=== PATIENT | male | born 1945 | race Caucasian/White ===

== ENCOUNTER 2021-05-01 22:49 | Emergency (ER) | payer MEDICARE, BC ==
[~2021-05-01] VITALS: Ht 172.7 cm; Wt 99.8 kg
[2021-05-01] MEDS ORDERED: IV NORMAL SALINE 1000 ML BAG IV ONE (23:15)
[2021-05-01] MEDS ORDERED: DICYCLOMINE HCL LIQ 10 MG/5 ML UDC PO ONE (23:15)
[2021-05-01] MEDS ORDERED: DIPHENOXYLATE HCL/ATROP SULF TABLET PO ONE (23:15)
[2021-05-01 23:32] LABS: HEMATOCRIT 40.9 % (36.7-47.1); MEAN CORPUSCULAR HEMOGLOBIN 32.8 uug (23.8-33.4); MEAN CORPUSCULAR VOLUME 94.8 fL (73.0-96.2); PLATELET COUNT (AUTO) 324 K/uL (152-348)
[2021-05-01 23:35] LABS: CARBON DIOXIDE 22 mmol/L (21-32); CHLORIDE 96 mmol/L (98-107); CREATININE 3.4 mg/dL (0.6-1.3); GLUCOSE 124 mg/dL (74-106); POTASSIUM 4.5 mmol/L (3.5-5.1); UREA NITROGEN, BLOOD 65 mg/dL (7-18)
[2021-05-01] MEDS ORDERED: DICYCLOMINE HCL LIQ 10 MG/5 ML UDC ONE (23:45)
[2021-05-01] MEDS ORDERED: DIPHENOXYLATE HCL/ATROP SULF TABLET ONE (23:47)
[2021-05-01 23:50] LABS: ALANINE AMINOTRANSFERASE 26 U/L (16-63); ALKALINE PHOSPHATASE 104 U/L (50-136); ASPARTATE AMINOTRANSFERASE 20 U/L (15-37); BILIRUBIN,DIRECT 0.2 mg/dL (0.0-0.2); BILIRUBIN,TOTAL 0.7 mg/dL (0.2-1.0); LIPASE 197 U/L (73-393)
[2021-05-02] MEDS ORDERED: IV NORMAL SALINE 1000 ML BAG IV ONE (00:45)
[2021-05-02 01:37] LABS: CARBON DIOXIDE 23 mmol/L (21-32); CHLORIDE 101 mmol/L (98-107); CREATININE 3.2 mg/dL (0.6-1.3); GLUCOSE 109 mg/dL (74-106); POTASSIUM 4.5 mmol/L (3.5-5.1); UREA NITROGEN, BLOOD 63 mg/dL (7-18)
[2021-05-02] MEDS ORDERED: DICY20TA11 PO (02:08)
[2021-05-02] MEDS ORDERED: DIPH1TAB28 PO (02:08)
[2021-05-02] MEDS ORDERED: ONDA4TAB5 PO (02:08)
[2021-05-02] MEDS ORDERED: DICYCLOMINE HCL LIQ 10 MG/5 ML UDC PO ONE (02:15)
[2021-05-02] MEDS ORDERED: DIPHENOXYLATE HCL/ATROP SULF TABLET PO ONE (02:15)
[2021-05-02] MEDS ORDERED: DICYCLOMINE HCL LIQ 10 MG/5 ML UDC ONE (02:28)
[2021-05-02] MEDS ORDERED: DIPHENOXYLATE HCL/ATROP SULF TABLET ONE (02:28)
--- NOTE | 2021-05-02 03:21 | NUR ---
IV removed. Catheter intact and site benign. Pressure and 4x4 gauze applied to site. No bleeding noted.
[2021-05-02 03:22] VITALS: BP 117/73
--- NOTE | 2021-05-02 03:22 | NUR ---
Patient discharged to home in stable condition. Written and verbal after care instructions given. Patient verbalizes understanding of instructions. Stressed follow up or return to ER for worsening s/s.
== END 2021-05-02 03:22 | disposition home or self-care (01) ==
LOC: ER 22:49
DX: E86.0 Dehydration (principal); R19.7 Diarrhea, unspecified; N28.9 Disorder of kidney and ureter, unspecified; R94.31 Abnormal electrocardiogram [ECG] [EKG]; I48.91 Unspecified atrial fibrillation; Z88.0 Allergy status to penicillin; Z88.8 Allergy status to other drugs, medicaments and biological substances; Z91.040 Latex allergy status; E11.9 Type 2 diabetes mellitus without complications; Z79.01 Long term (current) use of anticoagulants; R10.9 Unspecified abdominal pain; Z20.822 Contact with and (suspected) exposure to COVID-19
CPT/HCPCS: 36415; 70030-TC; 83690; 85025; 85610; 93005; A4663; J7030